=== PATIENT | female | born 1975 | race Native Hawaiian/Other Pacific Islander ===

== ENCOUNTER 2018-03-12 11:48 | Outpatient (CLI) | payer OTHER ==
[2018-03-12 12:18] LABS: PLATELET COUNT 480 K/uL (152-353)
[2018-03-12 12:38] LABS: POTASSIUM 3.4 mmol/L (3.6-5.2); SODIUM 138 mmol/L (136-145)
== END 2018-03-12 19:36 | disposition home or self-care (01) ==
LOC: RAD 11:48
PROVIDERS: Podiatrist
DX: Z01.810 Encounter for preprocedural cardiovascular examination (principal); Z01.811 Encounter for preprocedural respiratory examination; Z01.812 Encounter for preprocedural laboratory examination; R74.8 Abnormal levels of other serum enzymes
CPT/HCPCS: 36415; 80053; 84702; 85027; 93005

== ENCOUNTER 2018-04-16 08:35 | Outpatient (CLI) | payer OTHER | END 2018-04-16 22:19 | disposition home or self-care (01) | LOC: MAMMO 08:35 | DX: Z12.31 Encounter for screening mammogram for malignant neoplasm of breast (principal) ==

== ENCOUNTER 2018-05-20 09:14 | Outpatient (CLI) | payer OTHER | END 2018-05-20 20:17 | disposition home or self-care (01) | LOC: MAMMO 09:14 | DX: R92.8 Other abnormal and inconclusive findings on diagnostic imaging of breast (principal) ==

== ENCOUNTER 2018-10-01 20:23 | Emergency (ER) | payer OTHER ==
[~2018-10-01] VITALS: Ht 162.6 cm; Wt 113.9 kg
[2018-10-01 22:03] VITALS: BP 141/80; TEMP 97.7
== END 2018-10-01 22:04 | disposition home or self-care (01) ==
LOC: ED 20:23
DX: T78.49XA Other allergy, initial encounter (principal); T37.0X5A Adverse effect of sulfonamides, initial encounter; L29.8 Other pruritus; L27.0 Generalized skin eruption due to drugs and medicaments taken internally
CPT/HCPCS: 96372; 99283; J2930

== ENCOUNTER 2020-10-06 11:17 | Outpatient (CLI) | payer OTHER ==
[2020-10-06 12:06] LABS: PLATELET COUNT 339 K/uL (152-353)
[2020-10-06 12:17] LABS: POTASSIUM 2.9 mmol/L (3.6-5.2)
== END 2020-10-06 23:48 | disposition home or self-care (01) ==
LOC: RAD 11:17
PROVIDERS: ATTEND Podiatrist
DX: Z01.810 Encounter for preprocedural cardiovascular examination (principal); Z01.811 Encounter for preprocedural respiratory examination; Z01.812 Encounter for preprocedural laboratory examination
CPT/HCPCS: 36415; 80053; 85027; 93005

== ENCOUNTER 2021-07-22 14:27 | Outpatient (CLI) | payer OTHER ==
[2021-07-22 14:49] LABS: POTASSIUM 3.2 mmol/L (3.6-5.2)
== END 2021-07-22 19:06 | disposition home or self-care (01) ==
LOC: RESP 14:27
PROVIDERS: ATTEND Otolaryngology
DX: I10 Essential (primary) hypertension (principal); E11.9 Type 2 diabetes mellitus without complications
CPT/HCPCS: 36415; 80048; 93005